=== PATIENT | male | born 1955 | race Hispanic/Latino ===

== ENCOUNTER → 2022-08-28 | Outpatient (CLI) | payer MEDICARE, MEDICAID ==
[2022-08-28 14:59] LABS: BASOPHIL % 0.4 % (0.0-0.2); EOSINOPHIL # 0.1 10^3/uL (0.0-0.2); EOSINOPHIL % 1.2 % (0.0-5.0); LYMPHOCYTES # 1.48 10^3/uL1 (1.0-4.8); LYMPHOCYTES % 28.8 % (24.0-44.0); MEAN CORP HGB 32.6 pg (26-34); MONOCYTES # 0.5 10^3/uL (0.3-0.8); MONOCYTES % 10.1 % (5.0-12.0); NEUTROPHILS % 59.1 % (41.0-85.0); PLATELET COUNT 137 10^3/uL (150-400); RED CELL DISTRIBUTION WIDTH 12.5 % (11.5-14.5)
[2022-08-28 15:19] LABS: CARBON DIOXIDE 27.9 mmol/L (20.0-32)
== END | disposition home or self-care (01) ==
LOC: NPLAB 14:40
PROVIDERS: ATTEND Internal Medicine
DX: E10.9 Type 1 diabetes mellitus without complications (principal); F25.0 Schizoaffective disorder, bipolar type; N39.0 Urinary tract infection, site not specified
CPT/HCPCS: 80053; 80164; 85025; 87086